=== PATIENT | female | born 1995 | race African-American/Black ===

== ENCOUNTER 2016-05-25 22:04 | Emergency (ER) | payer OTHER ==
[~2016-05-25] VITALS: Ht 167.6 cm; Wt 72.6 kg
[2016-05-25 22:05] VITALS: BP_SYST 115
--- NOTE | 2016-05-25 22:05 | NUR ---
Patient to ER bed 7 to gown for evaluation. Side rails up. Report given to Christelle ROWE.
--- NOTE | 2016-05-25 22:10 | NUR ---
Patient to ER C/O abscess on left inner labia majora, patient C/O 8 pain "i cant even sit on the chair" patient states she noticed the abscess 2 days ago, denies fever, AAOx4, unlabored breathing, no signs of acute distress.
--- NOTE | 2016-05-25 22:17 | NUR ---
LUCA Wallace at bedside evaluatign the patient with Francisca carterperone.
--- NOTE | 2016-05-25 22:20 | NUR ---
Asuncion dick in [facility] - 05/25/16 at 2301 by FELIZ Patient reassigned to Mattie ROWE
--- NOTE | 2016-05-25 22:20 | NUR ---
I&D procedure done by MD Wallace with Christelle ROWE at bedside
--- NOTE | 2016-05-25 22:25 | NUR ---
I&D Procedure done by Dr Madison sorensen using sterile technique. Lidocaine 1% used. Adaptic, 4x4 and natalie to wound. Negligent amt of bleeding noted. Wound care discussed w/ patient. Pt tolerated procedure well.
[2016-05-25] MEDS ORDERED: LIDOCAINE/EPI 1% 1:100000 20 ML VIAL IJ ONE (22:30)
--- NOTE | 2016-05-25 22:54 | NUR ---
Patient given written and verbal discharge instructions and verbalizes understanding. ER MD Wallace discussed with patient the results and treatment provided. Patient in stable condition. ID arm band removed. Rx of Keflex & naprosyn given. Patient educated on pain management and to follow up with PMD. Pain Scale 0/10. Opportunity for questions provided and answered.
== END 2016-05-25 22:54 | disposition home or self-care (01) ==
LOC: SED 22:04
DX: N75.0 Cyst of Bartholin's gland (principal); Z88.0 Allergy status to penicillin; Z88.1 Allergy status to other antibiotic agents
CPT/HCPCS: 99283